=== PATIENT | female | born 1955 | race Caucasian/White ===

== ENCOUNTER 2018-04-16 15:08 | Emergency (ER) | payer OTHER ==
[~2018-04-16] VITALS: Ht 175.3 cm; Wt 56.7 kg
[~2018-04-16 15:08] MED LIST: INVOKANA100 MG PO; LISINOPRIL2.5 MG PO; METFORMIN HCL500 MG PO; SERTRALINE HCL25 M1 PO
[2018-04-16] MEDS ORDERED: ASPIR 8181 M1 PO (15:18)
[2018-04-16] MEDS ORDERED: VITAMIN D1000 UNI1 PO (15:19)
[2018-04-16] MEDS ORDERED: VITAMIN B-12500 MCG PO (15:19)
[2018-04-16] MEDS ORDERED: NAPROSYN500 MG PO (16:32)
[2018-04-16] MEDS ORDERED: CYCLOBENZAPRINE10 MG PO (16:32)
[2018-04-16] MEDS ORDERED: NORCO 5-325 TA1 EACH PO (16:33)
[2018-04-16 16:49] VITALS: BP 119/65
== END 2018-04-16 16:50 | disposition home or self-care (01) ==
LOC: M.ERS 15:08
DX: S16.1XXA Strain of muscle, fascia and tendon at neck level, initial encounter (principal); R07.81 Pleurodynia; R10.2 Pelvic and perineal pain; E11.9 Type 2 diabetes mellitus without complications; F32.9 Major depressive disorder, single episode, unspecified; Z88.1 Allergy status to other antibiotic agents; Z88.2 Allergy status to sulfonamides; Z88.5 Allergy status to narcotic agent; Z88.8 Allergy status to other drugs, medicaments and biological substances; V89.2XXA Person injured in unspecified motor-vehicle accident, traffic, initial encounter; Y93.I9 Activity, other involving external motion; Y92.89 Other specified places as the place of occurrence of the external cause; Y99.8 Other external cause status

== ENCOUNTER → 2018-05-21 | Outpatient (CLI) | payer OTHER ==
[~2018-05-21] MED LIST changes: +ASPIR 8181 M1 PO; +ASPIR 8181 MG PO; +ATORVASTATIN CA40 MG PO; +CYCLOBENZAPRINE10 MG PO; +LANTUS100 UNIT/M SUBQ; +NAPROSYN500 MG PO; +NORCO 5-325 TA1 EACH PO; +SENNA S TABLET1 EACH PO; +VITAMIN B-12500 MCG PO; +VITAMIN D1000 UNI1 PO; +XANAX 0.25 MG0.25 MG PO
== END ==
LOC: M.CT 08:17
DX: M25.552 Pain in left hip (principal)

== ENCOUNTER 2018-10-05 07:22 | Inpatient (IN) | payer OTHER ==
[~2018-10-05] VITALS: Ht 175.3 cm; Wt 58.1 kg
[~2018-10-05 07:22] MED LIST changes: -ASPIR 8181 MG PO; -ATORVASTATIN CA40 MG PO; -LANTUS100 UNIT/M SUBQ; -SENNA S TABLET1 EACH PO; -XANAX 0.25 MG0.25 MG PO
[2018-10-05 07:27] VITALS: BP 150/78
[2018-10-05 07:43] LABS: POC CREATININE 0.7 mg/dL (0.6-1.3); POC HEMOGLOBIN 12.9 g/dL (12.0-17.0); POC POTASSIUM 3.8 mmol/L (3.5-4.9)
[2018-10-05] MEDS ORDERED: XANAX 0.25 MG0.25 MG PO (07:45)
[2018-10-05 07:46] LABS: ABSOLUTE LYMPHOCYTES 0.9 thou/uL (0.8-5.3); ABSOLUTE MONOCYTES 0.4 thou/uL (0.0-1.2); ABSOLUTE NEUTROPHILS 3.9 thou/uL (1.6-8.1); BASOPHILS 0.1 %; EOSINOPHILS 0.1 %; HEMATOCRIT 39.7 % (37.0-47.0); HEMOGLOBIN 13.2 gm/dL (12.0-15.0); LYMPHOCYTES 16.6 %; MCH 28.2 pg (26.0-34.0); MCHC 33.4 g/dL (28.0-37.0); MCV 84.5 fL (80.0-100.0); MONOCYTES 7.4 %; MPV 8.2 fl. (7.2-11.1); NUCLEATED RBCS 0 /100WBC; PLATELET COUNT* 257 thou/uL (150-400); POLYS 75.8 %; RDW-CV 13.6 % (10.5-14.5); WBC 5.1 thou/uL (4.0-11.0)
[2018-10-05 07:57] LABS: ANION GAP 9 mmol/L (7-16); BUN 30 mg/dL (7-18); CALCIUM 9.2 mg/dL (8.5-10.1); CHLORIDE 93 mmol/L (98-107); CO2 24 mmol/L (21-32); POTASSIUM 3.8 mmol/L (3.5-5.1); SODIUM 126 mmol/L (136-145)
[2018-10-05 07:59] LABS: GLUCOSE 532 mg/dL (70-99)
[2018-10-05 08:01] LABS: ALBUMIN 3.8 g/dL (3.4-5.0); ALKALINE PHOSPHATASE 79 U/L (46-116); SGOT 9 U/L (15-37); SGPT 21 U/L (30-65); TOTAL BILIRUBIN 0.5 mg/dL (<0.1-1.0); TOTAL PROTEIN 7.3 g/dL (6.4-8.2); TROPONIN-I LEVEL <0.06 ng/mL (<0.06)
[2018-10-05 08:08] LABS: INR 0.9; PROTIME 9.2 Seconds (9.20-11.50)
[2018-10-05 08:57] LABS: BE -2.2 mmol/L (-2 to +3); HCO3 21.3 mmol/L (22.0-26.0); PCO2 32.7 mmHg (35.0-45.0); pH 7.431 (7.340-7.450)
[2018-10-05 09:00] LABS: PO2 142.3 mmHg (75.0-100.0)
--- NOTE | 2018-10-05 10:25 | EKG ---
[place] [address] ELECTROCARDIOGRAM REPORT Name: CHRISFRANKLIN Kisha Room: [place] [address] ADM IN .R.#: [id number] Admission: 10/05/18 Attend Phys: Michael Dominguez MD Discharge: Date of : 57 Report #: [id number] THIS REPORT FOR: //name// [facility] ED Test Date: 2018-10-05 Test Time: 07:44:25 Pat Name: FRANKLIN PEREZ Department: Room: [facility] Gender: F Associate Sales: YANA : 1955 Requested By: Cruzito Castlilo Order Number: [id number] MD: Crow Chawla Measurements Intervals [place] Rate: 84 P: 73 MO: 172 QRS: 36 QRSD: 86 T: 68 QT: 374 QTc: 443 Interpretive Statements Sinus rhythm No previous ECG available for comparison Electronically Signed On 10-05-2018 10:25:33 [employer] by Crow Chawla [email or web address] <ELECTRONICALLY SIGNED> By: Crow Chawla MD, [facility] 10/05/18 1025 0744 0744 Crow Chawla MD, FACC /EPI
[2018-10-05 10:55] VITALS: BP 118/75
[2018-10-05 18:01] VITALS: BP 110/62
[2018-10-05 19:02] VITALS: BP 123/61
[2018-10-05 21:00] VITALS: BP 119/59
[2018-10-05 23:08] LABS: GLYCOHEMOGLOBIN (HGB A1C) 11.3 % (4.8-5.6)
[2018-10-06] VITALS: BP 123/54
[2018-10-06 04:00] VITALS: BP 102/67
[2018-10-06 06:06] LABS: ABSOLUTE LYMPHOCYTES 1.1 thou/uL (0.8-5.3); ABSOLUTE MONOCYTES 0.5 thou/uL (0.0-1.2); ABSOLUTE NEUTROPHILS 3.5 thou/uL (1.6-8.1); BASOPHILS 0.1 %; EOSINOPHILS 0.2 %; HEMATOCRIT 36.1 % (37.0-47.0); HEMOGLOBIN 12.6 gm/dL (12.0-15.0); LYMPHOCYTES 20.8 %; MCH 28.6 pg (26.0-34.0); MCHC 34.8 g/dL (28.0-37.0); MCV 82.3 fL (80.0-100.0); MONOCYTES 10.3 %; MPV 8.3 fl. (7.2-11.1); NUCLEATED RBCS 0 /100WBC; PLATELET COUNT* 224 thou/uL (150-400); POLYS 68.6 %; RBC 4.39 mil/uL (4.20-5.00); RDW-CV 13.5 % (10.5-14.5); WBC 5.2 thou/uL (4.0-11.0)
[2018-10-06 06:25] LABS: ANION GAP 11 mmol/L (7-16); BUN 20 mg/dL (7-18); CALCIUM 8.3 mg/dL (8.5-10.1); CHLORIDE 105 mmol/L (98-107); CHOLESTEROL 190 mg/dL (<200); CO2 23 mmol/L (21-32); CREATININE 0.6 mg/dL (0.6-1.3); GLUCOSE 112 mg/dL (70-99); HDL CHOLESTEROL 69 mg/dL (>40); LDL CHOLESTEROL 87 mg/dL (<100); POTASSIUM 3.8 mmol/L (3.5-5.1); SODIUM 139 mmol/L (136-145); TC:HDL 2.8 Ratio (Not establshd); TRIGLYCERIDE 174 mg/dL (<150); VLDL 35 mg/dL (<40)
[2018-10-06 06:26] LABS: SERUM ASSESSMENT Clear
[2018-10-06 12:19] VITALS: BP 109/72
[2018-10-06 20:11] VITALS: BP 116/59
[2018-10-07] VITALS: BP 114/63
[2018-10-07 04:00] VITALS: BP 123/63
[2018-10-07 05:29] LABS: HEMATOCRIT 36.6 % (37.0-47.0); HEMOGLOBIN 12.7 gm/dL (12.0-15.0); MCH 28.8 pg (26.0-34.0); MCHC 34.7 g/dL (28.0-37.0); MCV 83.1 fL (80.0-100.0); MPV 8.2 fl. (7.2-11.1); RBC 4.41 mil/uL (4.20-5.00); RDW-CV 13.3 % (10.5-14.5); WBC 4.8 thou/uL (4.0-11.0)
[2018-10-07 06:02] LABS: ALBUMIN 3.1 g/dL (3.4-5.0); CALCIUM 8.4 mg/dL (8.5-10.1); CREATININE 0.6 mg/dL (0.6-1.3); POTASSIUM 4.6 mmol/L (3.5-5.1); TOTAL BILIRUBIN 0.3 mg/dL (<0.1-1.0); TOTAL PROTEIN 6.2 g/dL (6.4-8.2)
[2018-10-07 08:12] VITALS: BP 120/66
[2018-10-07 11:24] VITALS: BP 115/41
[2018-10-07 15:51] VITALS: BP 116/53
[2018-10-07 19:50] VITALS: BP 114/55
[2018-10-08 08:00] VITALS: BP 126/69
[2018-10-08] MEDS ORDERED: ATORVASTATIN CA40 MG PO (12:52)
[2018-10-08] MEDS ORDERED: SENNA S TABLET1 EACH PO (12:53)
[2018-10-08] MEDS ORDERED: LANTUS100 UNIT/M SUBQ (12:53)
[2018-10-08 14:04] VITALS: BP 126/69
[2018-10-08 14:06] VITALS: BP 126/69
[2018-10-08 15:32] VITALS: BP 126/69
[2018-10-08] MEDS ORDERED: ASPIR 8181 MG PO (17:27)
== END 2018-10-08 17:45 | disposition home health service (06) | DRG 69 ==
LOC: M.ERS 07:22 → M.TBA-ER 08:56 → M.ICU 08:56 → M.2W 19:28
PROVIDERS: Emergency Medicine Emergency Medical Services; Internal Medicine; ADMIT Family Medicine
DX: G45.9 Transient cerebral ischemic attack, unspecified (principal); F32.9 Major depressive disorder, single episode, unspecified; E11.65 Type 2 diabetes mellitus with hyperglycemia; J32.0 Chronic maxillary sinusitis; J34.1 Cyst and mucocele of nose and nasal sinus; E11.40 Type 2 diabetes mellitus with diabetic neuropathy, unspecified; K59.03 Drug induced constipation; T40.2X5A Adverse effect of other opioids, initial encounter; N18.3 Chronic kidney disease, stage 3 (moderate); E11.22 Type 2 diabetes mellitus with diabetic chronic kidney disease; I12.9 Hypertensive chronic kidney disease with stage 1 through stage 4 chronic kidney disease, or unspecified chronic kidney disease; F41.9 Anxiety disorder, unspecified; Z90.710 Acquired absence of both cervix and uterus; Z88.2 Allergy status to sulfonamides; Z82.49 Family history of ischemic heart disease and other diseases of the circulatory system; Z98.51 Tubal ligation status; Z88.5 Allergy status to narcotic agent; Z88.1 Allergy status to other antibiotic agents; Z88.8 Allergy status to other drugs, medicaments and biological substances; Z91.048 Other nonmedicinal substance allergy status; Z87.891 Personal history of nicotine dependence; Z84.89 Family history of other specified conditions; Y92.89 Other specified places as the place of occurrence of the external cause

== ENCOUNTER → 2018-11-01 | Outpatient (CLI) | payer OTHER ==
[~2018-11-01] MED LIST changes: +ASPIR 8181 MG PO; +ATORVASTATIN CA40 MG PO; +LANTUS100 UNIT/M SUBQ; +SENNA S TABLET1 EACH PO; +XANAX 0.25 MG0.25 MG PO
[2018-11-01 10:00] LABS: CALCIUM 9.3 mg/dL (8.5-10.1); CREATININE 0.9 mg/dL (0.6-1.3); POTASSIUM 4.1 mmol/L (3.5-5.1)
== END ==
LOC: M.LAB 09:18
PROVIDERS: Internal Medicine Endocrinology, Diabetes & Metabolism
DX: E11.9 Type 2 diabetes mellitus without complications (principal)

== ENCOUNTER → 2018-11-06 | Outpatient (CLI) | payer OTHER | LOC: M.CT 11:30 | DX: J32.0 Chronic maxillary sinusitis (principal) ==

== ENCOUNTER 2018-11-28 09:08 | Emergency (ER) | payer OTHER ==
[~2018-11-28] VITALS: Ht 175.3 cm; Wt 55.8 kg
[2018-11-28] MEDS ORDERED: LIDOCAINE PAIN1 EACH TOP (10:19)
[2018-11-28] MEDS ORDERED: PERCOCET PO (10:19)
[2018-11-28 10:29] VITALS: BP 111/60
== END 2018-11-28 10:30 | disposition home or self-care (01) ==
LOC: M.ERS 09:08
DX: R07.81 Pleurodynia (principal); E11.9 Type 2 diabetes mellitus without complications; F41.9 Anxiety disorder, unspecified; Z88.1 Allergy status to other antibiotic agents; Z88.2 Allergy status to sulfonamides; Z88.5 Allergy status to narcotic agent; Z88.8 Allergy status to other drugs, medicaments and biological substances; Z90.710 Acquired absence of both cervix and uterus; Z98.890 Other specified postprocedural states; Z79.4 Long term (current) use of insulin

== ENCOUNTER → 2019-04-29 | Outpatient (CLI) | payer OTHER ==
[~2019-04-29] MED LIST changes: +LIDOCAINE PAIN1 EACH TOP; +PERCOCET PO
== END ==
LOC: M.LAB 16:27 → M.MRI 17:30
DX: M54.5 Low back pain (principal); M25.552 Pain in left hip

== ENCOUNTER → 2019-11-05 | Outpatient (CLI) | payer OTHER ==
[2019-11-05 08:09] LABS: ABSOLUTE EOSINOPHILS 0.4 thou/uL (0.0-0.7); ABSOLUTE LYMPHOCYTES 1.5 thou/uL (0.8-5.3); ABSOLUTE MONOCYTES 0.3 thou/uL (0.0-1.2); ABSOLUTE NEUTROPHILS 2.3 thou/uL (1.6-8.1); BASOPHILS 0.6 %; EOSINOPHILS 9.8 %; HEMATOCRIT 41.2 % (37.0-47.0); HEMOGLOBIN 14.2 gm/dL (12.0-15.0); LYMPHOCYTES 33.2 %; MCH 27.5 pg (26.0-34.0); MCHC 34.4 g/dL (28.0-37.0); MCV 79.9 fL (80.0-100.0); MONOCYTES 6.7 %; MPV 7.6 fl. (7.2-11.1); NUCLEATED RBCS 0 /100WBC; PLATELET COUNT* 207 thou/uL (150-400); POLYS 49.7 %; RBC 5.15 mil/uL (4.20-5.00); RDW-CV 13.9 % (10.5-14.5); WBC 4.6 thou/uL (4.0-11.0)
[2019-11-05 08:23] LABS: ALBUMIN 3.9 g/dL (3.4-5.0); CALCIUM 8.6 mg/dL (8.5-10.1); CREATININE 0.9 mg/dL (0.6-1.3); DIRECT BILIRUBIN 0.1 mg/dL (<0.1-0.3); POTASSIUM 3.7 mmol/L (3.5-5.1); TOTAL BILIRUBIN 0.3 mg/dL (<0.1-1.0); TOTAL PROTEIN 7.3 g/dL (6.4-8.2)
[2019-11-06 23:08] LABS: HEPATITIS B SURFACE AG Negative (Negative)
== END ==
LOC: M.LAB 07:47
PROVIDERS: Family Medicine
DX: Z20.5 Contact with and (suspected) exposure to viral hepatitis (principal)

== ENCOUNTER 2020-01-30 11:48 | Emergency (ER) | payer OTHER ==
[~2020-01-30] VITALS: Ht 175.3 cm; Wt 62.1 kg
[2020-01-30] MEDS ORDERED: MOBIC7.5 MG PO (13:33)
[2020-01-30 13:51] VITALS: BP 103/47
== END 2020-01-30 13:55 | disposition home or self-care (01) ==
LOC: M.ERS 11:48
DX: S90.31XA Contusion of right foot, initial encounter (principal); E11.9 Type 2 diabetes mellitus without complications; Z88.1 Allergy status to other antibiotic agents; Z88.2 Allergy status to sulfonamides; Z88.8 Allergy status to other drugs, medicaments and biological substances; Z98.51 Tubal ligation status; Z90.710 Acquired absence of both cervix and uterus; Z79.4 Long term (current) use of insulin; X58.XXXA Exposure to other specified factors, initial encounter; Y93.89 Activity, other specified; Y92.89 Other specified places as the place of occurrence of the external cause; Y99.8 Other external cause status

== ENCOUNTER 2020-06-01 14:10 | Emergency (ER) | payer OTHER ==
[~2020-06-01] VITALS: Ht 175.3 cm; Wt 61.2 kg
[~2020-06-01 14:10] MED LIST changes: +MOBIC7.5 MG PO
[2020-06-01] MEDS ORDERED: NORCO 5-325 TA1 EAC2 PO (16:19)
[2020-06-01 16:50] VITALS: BP 112/55
== END 2020-06-01 16:51 | disposition home or self-care (01) ==
LOC: M.ERS 14:10
DX: S61.214A Laceration without foreign body of right ring finger without damage to nail, initial encounter (principal); E11.9 Type 2 diabetes mellitus without complications; Z90.710 Acquired absence of both cervix and uterus; Z98.51 Tubal ligation status; Z88.1 Allergy status to other antibiotic agents; Z88.2 Allergy status to sulfonamides; Z88.5 Allergy status to narcotic agent; Z88.8 Allergy status to other drugs, medicaments and biological substances; W23.0XXA Caught, crushed, jammed, or pinched between moving objects, initial encounter; Y93.89 Activity, other specified; Y92.89 Other specified places as the place of occurrence of the external cause; Y99.8 Other external cause status